=== PATIENT | female | born 1995 | race Caucasian/White ===

== ENCOUNTER → 2017-08-10 16:11 | Outpatient (CLI) | payer OTHER, SELFPAY ==
[2017-08-10 18:04] LABS: ALB/GLOB Ratio 1.2 RATIO (0.9-2.4); AST(SGOT) 11 U/L (15-37); Alanine Aminotransfer ALT/SGPT 21 U/L (13-56); Albumin, Serum 4.2 g/dL (3.2-5.0); Alkaline Phosphatase 65 U/L (45-117); Anion Gap 6 (5-15); BUN 12 mg/dL (7-18); BUN/Creat Ratio 15.4 RATIO (10-20); Calcium,Total 9.3 mg/dL (8.5-10.1); Chloride 106 mmol/L (98-107); Creatinine, Serum 0.78 mg/dL (0.55-1.02); EST Glomerular Filtration Rate 99 mL/min (>60); Est Glom Filt Rate - Afr Amer 120 mL/min (>60); Globulin 3.5 g/dL (2.2-4.2); Glucose 74 mg/dL (74-106); Protein, Total 7.7 g/dL (6.4-8.2); Sodium Level 141 mmol/L (136-145); T4 Free Direct 0.94 ng/dL (0.76-1.46); Thyroid Stim Hormone (TSH) 2.16 uIU/mL (0.358-3.74)
== END ==
DX: E03.9 Hypothyroidism, unspecified (principal); F41.9 Anxiety disorder, unspecified
CPT/HCPCS: 36415; 80053; 84439; 84443

== ENCOUNTER → 2018-09-13 08:22 | Outpatient (CLI) | payer OTHER, SELFPAY ==
[2018-09-13 10:19] LABS: Absolute Lymphocyte Count 2.18 X10^3/ul (0.83-4.51); Absolute Neutrophil Count 5.3 X10^3/uL (2.0-7.7); Basophil# 0.04 X10^3/uL; Basophil% 0.5 % (0-1); Eosinophil# 0.08 X10^3/uL; Hematocrit 40.8 % (37-47); Lymphocyte # 2.18 X10^3/ul (4.0); Lymphocyte % 27.5 % (19-41); Mean Corp Hgb Conc 31.9 g/gl (32-36); Mean Corpuscular Hgb 26.9 pg (27.0-32.0); Mean Corpuscular Volume 84.5 fL (81-99); Mean Platelet Vol. 10.8 fl (6.2-12.0); Monocyte# 0.36 X10^3/uL; Monocyte% 4.5 % (0-10); Neutrophil # 5.27 X10^3/uL (2.7-7.7); Neutrophil % 66.4 % (47-70); Platelet Count 301 K/mm3 (150-450); RBC Distribution Width CV 13.3 % (11.6-14.6); RBC Distribution Width SD 40.5 fl (35.1-43.9); Red Blood Count 4.83 M/mm3 (4.2-5.4); White Blood Count 7.9 K/mm3 (4.4-11.0)
[2018-09-13 10:22] LABS: POSITIVE COUNT NO; POSITIVE DIFFERENTIAL NO; POSITIVE MORPHOLOGY NO
[2018-09-13 11:03] LABS: ALB/GLOB Ratio 1.2 RATIO (0.9-2.4); AST(SGOT) 15 U/L (15-37); Alanine Aminotransfer ALT/SGPT 23 U/L (13-56); Albumin, Serum 4.1 g/dL (3.2-5.0); Alkaline Phosphatase 58 U/L (45-117); Anion Gap 6 (5-15); BUN 14 mg/dL (7-18); Calcium,Total 8.9 mg/dL (8.5-10.1); Chloride 109 mmol/L (98-107); Creatinine, Serum 0.88 mg/dL (0.55-1.02); EST Glomerular Filtration Rate 86 mL/min (>60); Est Glom Filt Rate - Afr Amer 104 mL/min (>60); Globulin 3.3 g/dL (2.2-4.2); Glucose 111 mg/dL (74-106); Potassium 3.8 mmol/L (3.5-5.1); Protein, Total 7.4 g/dL (6.4-8.2); Sodium Level 140 mmol/L (136-145); T4 Free Direct 0.97 ng/dL (0.76-1.46)
== END ==
DX: R00.2 Palpitations (principal)
CPT/HCPCS: 36415; 80053; 84439; 84443; 85025

== ENCOUNTER 2019-03-28 08:23 | Day surgery (SDC) | payer OTHER, SELFPAY ==
[2019-03-06 15:12] VITALS: BMI 34.7
--- NOTE | 2019-03-21 04:49 | HP.PCM_ITS ---
- Problem List (1) Adnexal mass Status: Acute Comment: suspect teratoma recommend Laparoscopic right ovarian cystectomy possible oophorectomy. (2) Anxiety Status: Acute (3) Hypothyroidism Status: Acute History and Physical Date of Admission: 03/28/19 ntake Visit Reasons: MASS ON UTERUS Hack Driver Required: No Is patient in pain?: Yes Pain scale (1-10): 2 Allergies azithromycin [From Zithromax Z-Sebastian] Allergy (Mild, Verified 03/06/19 15:08) hives Medications NK 03/06/19 [History Confirmed 03/06/19] Is last menstrual period known: Yes Last Menstral Period: 02/10/19 Post menopausal: No Patient : No : No COUNT INCLUDES [facility] Medical History (Updated 03/08/19 @ 04:38 by Marina Colindres MD) Hypothyroidism (Acute) Anxiety (Acute) Depression (Acute) Surgical History (Updated 03/06/19 @ 15:10 by Lakshmi Shepherd) S/P tonsillectomy (Resolved) Family History (Updated 03/06/19 @ 15:10 by Lakshmi Shepherd) Father Hypertension Mother Hypothyroidism Social History (Updated 03/08/19 @ 04:39 by Marina Colindres MD) Smoking Status: Never smoker alcohol intake: current details: occasionally substance use type: does not use caffeine: Yes what type of physical activity do you participate in: none seatbelt use: always do you feel safe at home: Yes additional social history: Single-Goes to school at [employer] Patient works at [employer] MASS ON UTERUS : Details: KATE TY is a 23 year old who presents for Follow-up after evaluation showed 16 cm follow-up after evaluation showed a 16 cm ovarian mass. Will obtain records. Based on description it sounds like a possible teratoma. She started having dyspareunia and some intermittent lower pelvic pain. She is not on any control at this time. She has regular menses and denies any abnormal bleeding. Female Reproductive History Last Menstral Period: 02/10/19 Cycle Length: 21-35 Bleeding Duration: 5 Questions: Metorrhagia: No, Sexually active: Yes, Dyspareunia: Yes, PCB: No Menopausal Symptoms: No night sweats Pregancy History 0 Elective abortions Hx Para Spontaneous abortions Hx # Term Pregnancies Ectopic pregnancies Hx # Pregnancies Multiple births # of living children ROS Const Constitutional: Denies fatigue, night sweats, weight gain or weight loss ENT ENT: Reports system reviewed and no additional complaints, except as docu Cardio Card: Denies chest pain Resp Resp: Denies cough or dyspnea GI GI: Reports as per HPI; denies abdominal pain, constipation, nausea or vomiting : Denies nipple discharge, urinary frequency, urinary incontinence, urinary hesitancy, urinary urgency, vaginal discharge, vaginal dryness, vaginal odor or vaginal itching Musc Musc: Denies joint pain, back pain or muscle weakness Skin Skin/Breast: Denies hair loss, change in hair, dry skin, breast lump, breast pain, breast skin changes or nipple discharge Neuro Neuro: Reports system reviewed and no additional complaints, except as docu Psych Psych: Reports system reviewed and no additional complaints, except as docu Endo Endo: Denies cold intolerance, excessive sweating, heat intolerance or increased thirst Armando/Lymph Hematologic/Lymphatic: Denies easy bleeding, Denies easy bruising, Denies enlarged lymph nodes Exam Const General: cooperative, healthy appearing, comfortable, no acute distress, well developed Orientation: alert [facility] Head: normal to inspection, normocephalic Ears: hearing grossly normal bilaterally, external ears normal Nose: external nose normal, nares normal Face and sinus: normal facial exam Neck Neck: normal visual inspection, no lymphadenopathy Thyroid: thyroid normal Chest Chest palpation & inspection: normal inspection of the chest Resp Effort & Inspection: normal respiratory effort Cardio Rate: regular rate Rhythm: regular rhythm GI Inspection: normal to inspection, non-distended Palpation: soft, no hepatosplenomegaly, mass (lower pelvic mass at pelvic brim, bedside US shows heterogenous cystic mass) Musc Other: gross motor intact no deficits, full bilateral strength Skin General: no rashes or lesions noted Neuro General: alert, awake, moves all extremities, no focal motor deficits Motor: muscle tone normal throughout Extrem General: normal to inspection, no pedal edema Psych Appearance: grossly normal Mental Status: mental status grossly normal Affect: normal affect Speech and Movement: speech and movement normal Assessment & Plan Problems 1. Adnexal mass N94.89 suspect teratoma recommend Laparoscopic right ovarian cystectomy possible oophorectomy. Plan After discussing the patient's diagnosis and treatment plan options, patient wishes to proceed with surgical management. I have discussed with the patient the risks, benefits, and alternatives of the procedure which include but are not limited to risks of anesthesia, bleeding, infection, possible damage to bowel, bladder, or surrounding vasculature which could lead to additional surgery to evaluate any complications. Patient agrees to procedure and wishes to proceed. i also discussed possible control implants like an IUD or nexplanon to be inserted at the time of the procedure if desired. patient to decide. Coding Level of Care Code Off vis,new,level 4 Diagnoses Adnexal mass N94.89
[2019-03-28 08:45] VITALS: BP 146/83; PULSE 98; RESP 14; TEMP 35.8; O2SAT 100; BMI 34.1
[2019-03-28 08:48] LABS: Internal QC Validated? YES +Cl - CLEAR BKGD; Pregnancy, Urine Negative Negative
[2019-03-28 09:01] LABS: Hematocrit 44.2 % (37-47); Hemoglobin 14.9 g/dL (12.0-15.0); Mean Corp Hgb Conc 33.7 g/dL (32-36); Mean Corpuscular Hgb 29.2 pg (27.0-32.0); Mean Corpuscular Volume 86.5 fL (81-99); Mean Platelet Vol. 9.9 fl (6.2-12.0); Platelet Count 273 K/mm3 (150-450); RBC Distribution Width CV 12.1 % (11.6-14.6); RBC Distribution Width SD 38.2 fl (35.1-43.9); Red Blood Count 5.11 M/mm3 (4.2-5.4); White Blood Count 10.2 K/mm3 (4.4-11.0)
[2019-03-28] MEDS: Lactated Ringers 1,000 ML 100 ML IV (09:11)
[2019-03-28 09:20] LABS: Thyroid Stim Hormone (TSH) 6.67 uIU/mL (0.358-3.74)
--- NOTE | 2019-03-28 10:00 | CYST_PTH ---
PATIENT: KATE TY [place] [facility] [id number] AGE/SX: 23/F ROOM: RE03/28/[address]: Dr. Marina Colindres MD : 1995 BED: DIS: 03/28/2019 SPEC #: [id number] RECD: 03/28/19 13:17 STATUS: REYNA VICENTE #: [id number] YOLA: 03/28/19 10:[address]: Marina Colindres DEPT: SURGICAL PATHOLOGY RECD BY: Jose Roberto Zhong Tissues: OVARIAN CYST Procedures: Surgery Specimen Level V HEADER OPERATION: Laparoscopic right ovarian cystectomy and right salpingectomy PRE-OP DIAGNOSIS: Right ovarian mass TISSUE SUBMITTED: Right ovarian cyst and right fallopian tube MICROSCOPIC DIAGNOSIS Right ovarian cyst and right fallopian tube, right ovarian cystectomy and right salpingectomy: Papillary serous cystadenofibroma with focal calcifications. Fallopian tube, no pathologic diagnosis. Focal tubo-ovarian adhesions. SJ:sola 03/29/19 COMMENT Case has been reviewed in consultation with Dr. Friend who concurs with the above diagnosis. IDC:AM MICROSCOPIC DESCRIPTION Slides are reviewed. GROSS DESCRIPTION Received in fixative is one container labeled with the patient's name and designated right ovarian cyst and right fallopian tube. The specimen consists of previously, partially opened, collapsed ovarian cyst, cystic ovary and stretched fallopian tube overlying the cyst. The focal area of the fallopian tube is adherent to the ovarian cyst. The entire specimen weighs 72 gm. The fallopian tube measures 8 cm in length and up to 1 cm in diameter. The cystic ovary measures 9 x 7 x 4 cm. The outer surface is inked black. No papillations are identified. The inner cyst wall shows multiple areas of small papillation. The largest area measures 4 cm in greatest dimension. The cyst wall measures 0.2 cm in thickness. Lead Radiologic Technologist sections are submitted in eight cassettes as follows: 1 - fallopian tube, 2-8 - cystic ovary. Almost the entire area of papillation is submitted. / CHADWICK:sola 03/28/19 TC:1 CPT: 75561
[2019-03-28] MEDS: Bupivacaine 0.25% 30 ML Vial (12:33)
--- NOTE | 2019-03-28 12:37 | PCM.OPRPT ---
Problem List (1) Adnexal mass Status: Acute Comment: suspect teratoma recommend Laparoscopic right ovarian cystectomy possible oophorectomy. (2) Anxiety Status: Acute (3) Hypothyroidism Status: Acute Report of Operation Date of Procedure: 03/28/19 Pre-Operative Diagnosis: right ovarian cyst, contraception, pelvic pain Post-Operative Diagnosis: same Surgery/Procedure Performed:: right ovarian cystectomy right salpingectomy mirena iud insertion Description of Surgical Findings:: enlarged right ovarian cyst left multicystic ovary photo mask inspector: Odalys Pierre Type of Anesthesia:: General Special Medications: surgicell Specimen's removed: right ovary and tube Drains: none Estimated Blood Loss (mL): 50 Fluids Replaced: crystalloid Description of Procedure: Presented to the operating room and was placed under general anesthesia was prepped and draped in normal sterile fashion in dorsal position. Bladder was drained clear urine and uterine manipulator was placed sounded to 10 cm. Was noted to be significantly distorted and anteverted insert patient was taken in the operating room and was placed under general anesthesia was prepped and draped in normal sterile fashion in the dorsal lithotomy position. Attention was then paid to the abdominal portion of the procedure and the umbilicus was elevated with towel clamps and injected with Marcaine and after a 12 mm incision was made and the Veress needle was entered into the abdomen confirmed to be intra-abdominal with a low opening pressure of less than 5 mmHg. Abdomen was insufflated with CO2 gas and a 12 mm optical trocar was placed under direct visualization. A right and left lower quadrant 5 mm ports were placed under direct visualization. Uterus was well visualized and noted to be significantly anteverted up into the left and the right ovary was noted to be significantly enlarged filling the entire cul-de-sac and extending up into the mid abdomen. Left ovary was noted to be multicystic in appearance but appear to be normal cyst. The right ovary was mobilized out of the cul-de-sac and the fallopian tube was noted to be significantly stretched out and the fimbria clogged and abnormal therefore after starting a dissection of the cyst to the decision to remove the fallopian tube and the entire ovarian tissue which was separate from some normal-appearing ovarian tissue. An additional left upper quadrant 5 mill meter port was placed for assistance. The base of the connection between the ovarian cyst and ovary were transected with the LigaSure device and the fallopian tube and mesosalpinx was transected with the LigaSure device and the ovarian cyst was placed into a bag without rupturing it and through the umbilical port site that was enlarged it was drained and removed of serous fluid in the rest the tissue was removed with no intra-abdominal spillage of contents. Fascia closed with 0 Vicryl suture. Pelvis was checked and Surgicel was placed over the left ovary that had been opened up to confirm physiologic cysts. Left fallopian tube was noted being within normal limits and the remaining right ovary was noted to be within normal limits. excellent hemostasis was noted. Liver and upper abdomen were visualized notably within normal limits and no other gross abnormalities were seen in the abdomen. All instruments removed from the abdomen after gas was desufflated. Port sites were closed with 3-0 Monocryl Steri's and op sites were applied. All instruments removed from the vagina and patient was awoken and taken recovery in stable condition. Uterine manipulator was removed and the anterior lip of the cervix was grasped with single-tooth tenaculum and uterus sounded to 10 cm the IUD was deployed without difficulty and strings x3 cm from the office. All instruments removed from the vagina. Grafts/Implants Used: mirena iud - Complications none Multi Select Codes - Urinary/Genital Urinary/Genital CPT Codes: 42490 Insert IUD, 17108 Laproscopic BS/O
[2019-03-28 12:55] VITALS: BP 137/84; BP 146/83; PULSE 76; RESP 16; TEMP 36.6; O2SAT 95
[2019-03-28 13:00] VITALS: BP 125/72; BP 146/83; PULSE 70; RESP 16; O2SAT 94
--- NOTE | 2019-03-28 13:08 | DCINST_ITS ---
Discharge Diet: No Restrictions - Increase fluid intake for the next 48 hours. Discharge Activity: Return to Normal Activity, May Drive - when you are no longer taking narcotic pain medications., May Shower, May Take a Tub Bath - in 7 days Additional Activity Instructions:: Ambulate often the next week after surgery. Nothing in the vagina for 5 days. Call your doctor if your incision/area has: Continuous Slow Oozing, Sudden Increased Bleeding, Increased Pain/ Swelling, Increased Redness, Foul Smelling Discharge Call your doctor if you observe: Fever of 101 or Higher Allergies/Adverse Reactions: Allergies azithromycin [From Zithromax Z-Sebastian] Allergy (Mild, Verified 03/21/19 14:44) hives Medications to take at Discharge Naproxen [Naprosyn] 250 - 500 mg PO Q8H PRN PRN #30 tab 03/28/19 Oxycodone HCl/Acetaminophen [Percocet 5-325] 1 - 2 tab PO Q4H PRN PRN 7 Days #15 tab 03/28/19 The following prescriptions were given: Naproxen [Naprosyn] 250 - 500 mg PO Q8H PRN PRN #30 tab PRN Reason: MILD PAIN Transmission Status: Received by [facility] Oxycodone HCl/Acetaminophen [Percocet 5-325] 1 - 2 tab PO Q4H PRN PRN 7 Days #15 tab PRN Reason: Pain Transmission Status: Received by [facility] Primary Care Physician: DEGAR JONES [Other] Test Results: Test results from this visit will be discussed in further detail at your follow- up appointment, if applicable. Please Follow Up With: Marina Colindres MD - [phone]
[2019-03-28 13:15] VITALS: BP 144/82; BP 146/83; PULSE 92; RESP 16; O2SAT 100
[2019-03-28 13:31] VITALS: BP 125/77; BP 146/83; PULSE 72; RESP 16; TEMP 36.3; O2SAT 100
[2019-03-28] MEDS: HYDROcodone Bitartrate/Apap 5/325 Tablet PO (14:00)
[2019-03-28 14:18] VITALS: BP 128/76; BP 146/83; PULSE 88; RESP 16; TEMP 36.1; O2SAT 98
== END 2019-03-28 14:25 | disposition home or self-care (01) ==
LOC: SDC 08:23 → AC 08:25
PROVIDERS: Anesthesiology; Referring Provider Obstetrics & Gynecology; Visit Provider Obstetrics & Gynecology
PROC: (CPT 58720; principal; 2019-03-28 09:45)
DX: D27.0 Benign neoplasm of right ovary (principal); E03.9 Hypothyroidism, unspecified; Z88.1 Allergy status to other antibiotic agents; Z86.2 Personal history of diseases of the blood and blood-forming organs and certain disorders involving the immune mechanism; Z79.899 Other long term (current) drug therapy
CPT/HCPCS: 58300; 58661; 58662; 81025; 84443; 85027; 86850; 86900; 86901; 88305; 88307; J7120; J2405

== ENCOUNTER 2019-04-02 10:37 | Observation (INO) | payer OTHER, SELFPAY ==
[2019-03-29 14:55] VITALS: BMI 34.1
[2019-04-02] VITALS (12 sets, daily range): BP systolic 107–163; BP diastolic 48–115; PULSE 70–121; RESP 12–24; TEMP 36.9–37.4; O2SAT 95–100; BMI 34.7; BMI 97.4
--- NOTE | 2019-04-02 | FLU_PTH ---
PATIENT: KATE TY LOC: [facility] U#:[id number] AGE/SX: 23/ ROOM: [facility] RE04/02/[address]: Dr. Marina Colindres MD : 1995 BED: 1 DIS: 04/03/2019 SPEC #: [id number] RECD: 04/02/19 13:45 STATUS: REYNA RENallely #: [id number] YOLA: 04/02/19 00:[address]: Marina Colindres DEPT: CYTOLOGY RECD BY: Yaritza Mcgregor ENTERED: 04/03/19 09:05 SP TYPE: Fluid OTHR DR: Dr. Jerry Woo, DO Tissues: Pelvis, NOS Procedures: Special Stain Group II Surgery Specimen Level IV Cytospin Fluid HEADER OPERATION: Not noted PRE-OP DIAGNOSIS: Pelvic abscess TISSUE SUBMITTED: Pelvic seroma fluid for cytology DIAGNOSIS CYTOLOGY Pelvic seroma fluid for cytology (cytospin and cell block): Marked acute inflammation. Negative for malignant cells. AM:sola 04/04/19 COMMENT Clinical correlation is necessary. Case has been reviewed in consultation with Dr. Cr who concurs with the above diagnosis. IDC:SJ CYTOLOGY STUDY Slides are reviewed. CYTOLOGY GROSS Received is 12 ml of red hazy fluid labeled with the patient's name and and designated per the requisition as pelvic seroma. Submitted for cytology preparation including cell block. /CC:cc 04/03/19 TC:2 CPT: 57463, 14923
[2019-04-02 11:16] LABS: Absolute Lymphocyte Count 1.81 X10^3/uL (0.83-4.51); Absolute Neutrophil Count 10.5 X10^3/uL (2.0-7.7); Basophil# 0.04 X10^3/uL; Basophil% 0.3 % (0-1); Eosinophil# 0.12 X10^3/uL; Eosinophils% 0.9 % (0-5); Hematocrit 36.6 % (37-47); Hemoglobin 11.9 g/dL (12.0-15.0); Lymphocyte # 1.81 X10^3/ul (4.0); Lymphocyte % 13.5 % (19-41); Mean Corp Hgb Conc 32.5 g/dL (32-36); Mean Corpuscular Hgb 28.6 pg (27.0-32.0); Mean Platelet Vol. 10.1 fl (6.2-12.0); Monocyte# 0.85 X10^3/uL; Monocyte% 6.3 % (0-10); NRBC Flagged by Analyzer 0 % (0-5); Neutrophil # 10.52 X10^3/uL (2.7-7.7); Neutrophil % 78.6 % (47-70); Platelet Count 214 K/mm3 (150-450); RBC Distribution Width CV 12.2 % (11.6-14.6); RBC Distribution Width SD 39.1 fl (35.1-43.9); Red Blood Count 4.16 M/mm3 (4.2-5.4); White Blood Count 13.4 K/mm3 (4.4-11.0)
[2019-04-02] MEDS: HYDROmorphone 0.5 MG/0.5 ML SYRINGE IV ×2 (11:16→15:37)
[2019-04-02 11:28] LABS: Anion Gap 3 (5-15); BUN 9 mg/dL (7-18); BUN/Creat Ratio 12.3 RATIO (10-20); Calcium,Total 8.1 mg/dL (8.5-10.1); Chloride 112 mmol/L (98-107); Creatinine, Serum 0.73 mg/dL (0.55-1.02); EST Glomerular Filtration Rate 105 mL/min (>60); Est Glom Filt Rate - Afr Amer 127 mL/min (>60); Estimated Creatinine Clearance 113.16 ml/min; Glucose 87 mg/dL (74-106); Magnesium 2.3 mg/dL (1.6-2.6); Potassium 3.9 mmol/L (3.5-5.1); Sodium Level 142 mmol/L (136-145)
--- NOTE | 2019-04-02 11:45 | PCM.PN.BLA ---
Progress Note i talked wih Dr. Sarmiento regarding Lauryn Huynh. This young patient had a recent partial right oophorectomy on 2018 and has since developed a large, 10 x 12 cm centrally located cystic lesion in the pelvis on a recent CT scan of 04-02-2019. This cystic lesion is of uncertian etiology. It could represent a seroma, cystic fluid from the patients recently resected cystadenofibroma or an abscess. After consultation with Dr. Sarmiento, it was decided to put a needle into this fluid collection with CT guidance and withdraw 5 cc of fluid. If the fluid is blood and or cystic fluid, this will be sent to the labrotory for Cand S and the needle withdrawn. If abscess, a cathetor will be placed and the abscess will be managed by Dr. Sarmiento. Dr. Jerry Woo
--- NOTE | 2019-04-02 12:02 | HP.PCM_ITS ---
Problem List (1) Right pelvic adnexal fluid collection Status: Acute Comment: 15 x 8 x 5 cm complex fluid colleciton right pelvis, consult CT for drainage and evaluation (2) Adnexal mass Status: Acute Comment: serous cystadenofibroma, s/p Laparoscopic right ovarian partial oophorectomy 03/28/19. (3) Hypothyroidism Status: Chronic (4) Anxiety Status: Acute History of Present Illness Date of Admission: 04/02/19 Chief Complaint: pelvic fluid postop The patient is a 23 year old F presented to the emergency room with increasing lower pelvic and abdominal pain. She has had some nausea but no significant vomiting. Patient complains of decreased appetite and limited flatus. She is passing stool and having pain with urination. She feels bloated and had a low- grade temp of 99 yesterday but is afebrile today 98. She was seen in the [place] ER and evaluated and on CT imaging was found to have a right 12 x 5 x 8 cm complex fluid collection in the right adnexal area. She is postop day 5 from a laparoscopic partial right ovarian removal for a serous cystadenofibroma and left ovarian cyst drainage. This was performed as an outpatient and was uncomplicated at the time of procedure. White count was elevated at 17 and patient was transported to [facility] for evaluation. Past Medical History Past Medical History (Chronic Problems): Chronic Problems (Last Reviewed 03/29/19 @ 14:59 by Vijaya Fam) Hypothyroidism (Chronic) Medical History: Medical History (Last Reviewed 03/29/19 @ 14:59 by Vijaya Fam) Hypothyroidism (Chronic) E03.9 Anxiety (Acute) F41.9 Depression F32.9 Allergies azithromycin [From Zithromax Z-Sebastian] Allergy (Mild, Verified 04/02/19 08:57) hives Home Medications: Ambulatory Orders Medication Instructions Recorded Naproxen [Naprosyn] 250 - 500 mg PO Q8H PRN PRN #30 tab 03/28/19 Oxycodone HCl/Acetaminophen 1 - 2 tab PO Q4H PRN PRN 7 Days 03/28/19 [Percocet 5-325] #15 tab levothyroxine 25 mcg tablet 25 mcg PO DAILY #30 tab 03/29/19 Surgical History: Surgical History (Last Reviewed 03/29/19 @ 14:59 by Vijaya Fam) History of removal of ovarian cyst Z98.890, Z87.42 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 Denies: Fever Eyes: Denies: Blurred vision, Vision Change HEENT: Denies: Head Aches, Visual Changes Cardiovascular: Denies: Chest Pain, Palpitations Respiratory: Denies: Cough, Shortness of Breath, Wheezing Gastrointestinal: Reports: Abdominal Pain, Diarrhea, Nausea, Vomiting Genitourinary: Reports: Dysuria. Denies: Hematuria Gynecological: Reports: Vaginal bleeding - Small amount Musculoskeletal: Denies: Joint Pain, Muscle pain Skin: Denies: Lesions, Rash Neurological: Denies: Blurred vision, Focal weakness, Headaches Psychiatric: Denies: Anxiety, Depression Endocrine: Denies: Heat/ Cold Intolerance Hematologic/ Lymphatic: Denies: Easy Bruising, Easy Bleeding VTE Information - Inpt Only VTE Present on Admission: No VTE Mechan Device Prophylaxis: SCD's Patient Problems: Active and Suspected Problems (Last Reviewed 03/29/19 @ 14:59 by Vijaya Fam) Right pelvic adnexal fluid collection (Acute) 15 x 8 x 5 cm complex fluid colleciton right pelvis, consult CT for drainage and evaluation - Physical Exam General: Alert, Oriented x3, Cooperative HEENT: Atraumatic, PERRLA, Normocephalic Neck: Supple, Trachea Midline, Thyroid Normal Size and Texture Lungs: Clear to auscultation, Normal air movement Cardiovascular: Regular rate, No murmurs Abdomen: Hypoactive Bowel Sounds, Distended, Rebound Tenderness, Tender Extremities: No edema, Capillary Refill Less than 3 Seconds Skin: No rashes, No breakdown Musculoskeletal: No Tenderness to Palpation of Joints or Extremities Neurological: Cranial nerves II-XII grossly intact Psych/Mental Status: Normal Affect, Appropriate Vital Signs Temp Pulse Resp BP Pulse Ox 98.5 F 96 16 120/58 L 99 04/02/19 09:02 04/02/19 09:10 04/02/19 09:02 04/02/19 09:02 04/02/19 09:02 Oxygen Delivery Method Room Air Weight: 214 lb 12.8 oz Body Mass Index (BMI) 34.7 Laboratory Tests Past 24 Hrs 04/02/19 04/02/19 11:10 11:10 WBC 13.4 H RBC 4.16 L Hgb 11.9 L Hct 36.6 L MCV 88.0 MCH 28.6 MCHC 32.5 RDW Std Deviation 39.1 RDW Coeff of Nidia 12.2 Plt Count 214 MPV 10.1 Immature Gran % (Auto) 0.400 Neut % (Auto) 78.6 H Lymph % (Auto) 13.5 L Bradford % (Auto) 6.3 Eos % (Auto) 0.9 Baso % (Auto) 0.3 Absolute Neuts (auto) 10.5 H Absolute Lymphs (auto) 1.81 Nucleated RBC % 0 Sodium 142 Potassium 3.9 Chloride 112 H Carbon Dioxide 27.0 Anion Gap 3 L BUN 9 Creatinine 0.73 Estim Creat Clear Calc 113.16 Est GFR (MDRD) Af Amer 127 Est GFR (MDRD) Non-Af 105 BUN/Creatinine Ratio 12.3 Glucose 87 Calcium 8.1 L Magnesium 2.3 Assessment/Plan All Active Problems (Last Reviewed 03/29/19 @ 14:59 by Vijaya Fam) Right pelvic adnexal fluid collection (Acute) Adnexal mass (Acute) Anxiety (Acute) 23-year-old postop day 5 from laparoscopic partial right ovarian removal for a serous cystadenofibroma with a right complex pelvic fluid collection 1. Pelvic fluid collection recommend evaluation by radiology for possible CT- guided drainage and evaluation. Discussed with patient observation versus CT drainage versus surgical drainage. Recommend proceeding with CT-guided drainage for right now. npo, discussed with radiologist Multi Select Codes - Visit Charges Observation E&M Codin Initial observation care L3
[2019-04-02 12:32] LABS: International Normalized Ratio 1.1; Prothrombin Time (Protime)PT. 14.3 SECONDS (11.7-14.9)
[2019-04-02 12:33] LABS: Partial Thromboplast Time 26.9 Seconds (24.1-36.2)
--- NOTE | 2019-04-02 12:40 | CT_ITS ---
PROCEDURE: Ultrasound Guided CLINICAL HISTORY: Female, 23 years old. Large fluid collection noted in the cul-de-sac. CONSENT: A Time-Out Called: Yes Consent form signed: YES PT-PTT Levels Checked: Yes SEDATION: Conscious sedation was performed with 2 mg of Versed and 50 mcg of fentanyl given IV TECHNIQUE: Comparison is made to the most recent CT scan of the abdomen and pelvis obtained on 04/02/2019. The procedure was explained to the patient and her mother including the possible complications of systemic infection and intraperitoneal perforation and spread. The patient and her mother understand the complications. FINDINGS: The patient was placed in a prone position. A grid was utilized to to federica the appropriate position for needle entry. After this the site was marked and the skin was sterilely prepped and usual fashion. CT measurements and angulation was utilized to advance a 20-gauge needle approximately 9 cm down to a position approximately 1 cm posterior to the large fluid collection. Lidocaine plus sodium bicarbonate was injected through the needle tip. After the appropriate position of the needle tip was determined the needle was advanced 3 cm with its tip within the fluid collection. 10 to 12 cc of bloody fluid was aspirated from the fluid collection. This fluid was sent to the laboratory for culture and sensitivity creatinine and additional test under the direction of Dr. Marina Neely. Because the fluid collection was bloody, it was felt that this represented a seroma. This seroma was not completely aspirated as the large fluid collection within the seroma was felt to have a tampon on mean artifact and could prevent further bleeding. The needle was then withdrawn and the patient was sent back to her room in good condition. I discussed this case with Dr. Marina Sarmiento at 2:00 PM today and told her that I suspect this represented a large seroma. Should the laboratory evaluation prove that this is a seroma, Dr. Federica Neely will repeat the CT scan of the abdomen and pelvis in a week to check for resolution of the seroma. CT/Abscess/Fistula/Sinus Tract IMPRESSION: A diagnostic aspiration of a large fluid collection in the cul-de-sac was performed as described above. 10 to 12 cc of bloody fluid, indicative of a seroma, was obtained and sent to laboratory for further analysis as described above. Electronically Signed: Jerry Woo, at 15:32 EDT Tel , Service support ,
[2019-04-02] MEDS: Midazolam 2 MG/2 ML Syringe IV (13:13)
[2019-04-02] MEDS: fentaNYL 100 MCG/2 ML Ampul IV ×2 (13:15→13:35)
[2019-04-02 13:51] LABS: Cytology, Body Fluid / CSF SEE PATHOLOGY REPORT
[2019-04-02] MEDS: Sodium Bicarbonate 50 MEQ/50 ML Vial IRRIGATION (14:05)
--- NOTE | 2019-04-02 14:25 | NURSING ---
Bandaid to rt buttock is dry and intact.
--- NOTE | 2019-04-02 17:26 | PCA ---
pt off floor
[2019-04-02] MEDS: oxyCODONE 5 MG Tablet PO ×2 (17:31→21:59)
[2019-04-02] MEDS: Ketorolac 30 MG/ML Syringe IV (17:38)
[2019-04-02] MEDS: 0.9% NaCl Peripheral Flush Adult/Peds IV ×2 (17:39→17:43)
[2019-04-02] MEDS: metroNIDAZOLE 500 MG/100 ML BAG 100 MG IV (18:51)
[2019-04-02] MEDS: Zolpidem Tartrate 5 MG Tablet PO (22:47)
[2019-04-03] MEDS: Ketorolac 30 MG/ML Syringe IV ×3 (01:19→11:56)
[2019-04-03 02:00] VITALS: BP 115/54; PULSE 86; RESP 18; TEMP 37.1; O2SAT 94
[2019-04-03] MEDS: oxyCODONE 5 MG Tablet PO (02:24)
[2019-04-03 06:06] LABS: Absolute Lymphocyte Count 2.49 X10^3/uL (0.83-4.51); Absolute Neutrophil Count 7.4 X10^3/uL (2.0-7.7); Basophil# 0.03 X10^3/uL; Basophil% 0.3 % (0-1); Eosinophil# 0.15 X10^3/uL; Eosinophils% 1.4 % (0-5); Hemoglobin 10.9 g/dL (12.0-15.0); Lymphocyte # 2.49 X10^3/ul (4.0); Lymphocyte % 22.7 % (19-41); Mean Corp Hgb Conc 32.1 g/dL (32-36); Mean Corpuscular Hgb 28.7 pg (27.0-32.0); Mean Corpuscular Volume 89.5 fL (81-99); Mean Platelet Vol. 10.3 fl (6.2-12.0); Monocyte# 0.84 X10^3/uL; Monocyte% 7.7 % (0-10); NRBC Flagged by Analyzer 0 % (0-5); Neutrophil # 7.42 X10^3/uL (2.7-7.7); Neutrophil % 67.4 % (47-70); Platelet Count 198 K/mm3 (150-450); RBC Distribution Width CV 12.3 % (11.6-14.6); RBC Distribution Width SD 40.2 fl (35.1-43.9)
[2019-04-03 06:20] LABS: Anion Gap 6 (5-15); BUN 10 mg/dL (7-18); BUN/Creat Ratio 13.9 RATIO (10-20); Calcium,Total 7.9 mg/dL (8.5-10.1); Chloride 110 mmol/L (98-107); Creatinine, Serum 0.72 mg/dL (0.55-1.02); EST Glomerular Filtration Rate 107 mL/min (>60); Est Glom Filt Rate - Afr Amer 129 mL/min (>60); Estimated Creatinine Clearance 114.73 ml/min; Glucose 117 mg/dL (74-106); Sodium Level 142 mmol/L (136-145)
--- NOTE | 2019-04-03 08:04 | PCM.PN.OB ---
Patient Problems: Active and Suspected Problems (Last Reviewed 03/29/19 @ 14:59 by Vijaya Fam) Right pelvic adnexal fluid collection (Acute) 15 x 8 x 5 cm complex fluid colleciton right pelvis, consult CT for drainage and evaluation Subjective: Ambulating and voiding without difficulty. States pain is controlled. Denies CP, SOB. Denies nausea. Tolerating PO fluids. - Physical Exam General: Alert, Oriented x3 Abdomen: Soft, Non-Distended - Incision healing, nonerythematous., Passing Flatus, - - Incision healing, nonerythematous. Some tenderness with exam/guarding. Vital Signs Temp Pulse Resp BP Pulse Ox 98.7 F 86 18 115/54 L 94 04/03/19 02:00 04/03/19 02:00 04/03/19 02:00 04/03/19 02:00 04/03/19 02:00 Oxygen Delivery Method [5] Room Air Oxygen Delivery Method [4] Room Air Oxygen Delivery Method [3] Room Air Oxygen Delivery Method [2] Room Air Oxygen Delivery Method [1 ( Room Air Initial Baseline)] Oxygen Delivery Method Room Air Weight: 214 lb 12.8 oz Body Mass Index (BMI) 34.7 Intake and Output for Last 24 Hours 04/01/19 04/02/19 04/03/19 23:59 23:59 23:59 Intake Total 1513.09 / 1513.09 50 / 50 Output Total 300 / 550 500 / 500 Balance 1213.09 / 963.09 -450 / -450 Microbiology Past 72 Hours 04/02/19 13:40 Gram Stain - Final Fluid - Seroma Laboratory Tests Past 24 Hrs 04/02/19 04/02/19 04/02/19 11:10 11:10 12:10 WBC 13.4 H RBC 4.16 L Hgb 11.9 L Hct 36.6 L MCV 88.0 MCH 28.6 MCHC 32.5 RDW Std Deviation 39.1 RDW Coeff of Nidia 12.2 Plt Count 214 MPV 10.1 Immature Gran % (Auto) 0.400 Neut % (Auto) 78.6 H Lymph % (Auto) 13.5 L [place] % (Auto) 6.3 Eos % (Auto) 0.9 Baso % (Auto) 0.3 Absolute Neuts (auto) 10.5 H Absolute Lymphs (auto) 1.81 Nucleated RBC % 0 PT 14.3 INR 1.1 APTT 26.9 Sodium 142 Potassium 3.9 Chloride 112 H Carbon Dioxide 27.0 Anion Gap 3 L BUN 9 Creatinine 0.73 Estim Creat Clear Calc 113.16 Est GFR (MDRD) Af Amer 127 Est GFR (MDRD) Non-Af 105 BUN/Creatinine Ratio 12.3 Glucose 87 Calcium 8.1 L Magnesium 2.3 Miscellaneous Cytology Miscellaneous Test 04/02/19 04/02/19 04/03/19 13:40 13:40 05:35 WBC 11.0 RBC 3.80 L Hgb 10.9 L Hct 34.0 L MCV 89.5 MCH 28.7 MCHC 32.1 RDW Std Deviation 40.2 RDW Coeff of Nidia 12.3 Plt Count 198 MPV 10.3 Immature Gran % (Auto) 0.500 Neut % (Auto) 67.4 Lymph % (Auto) 22.7 [place] % (Auto) 7.7 Eos % (Auto) 1.4 Baso % (Auto) 0.3 Absolute Neuts (auto) 7.4 Absolute Lymphs (auto) 2.49 Nucleated RBC % 0 PT INR APTT Sodium Potassium Chloride Carbon Dioxide Anion Gap BUN Creatinine Estim Creat Clear Calc Est GFR (MDRD) Af Amer Est GFR (MDRD) Non-Af BUN/Creatinine Ratio Glucose Calcium Magnesium Miscellaneous Cytology Pending Miscellaneous Test Pending 04/03/19 05:35 WBC RBC Hgb Hct MCV MCH MCHC RDW Std Deviation RDW Coeff of Nidia Plt Count MPV Immature Gran % (Auto) Neut % (Auto) Lymph % (Auto) [place] % (Auto) Eos % (Auto) Baso % (Auto) Absolute Neuts (auto) Absolute Lymphs (auto) Nucleated RBC % PT INR APTT Sodium 142 Potassium 4.0 Chloride 110 H Carbon Dioxide 26.0 Anion Gap 6 BUN 10 Creatinine 0.72 Estim Creat Clear Calc 114.73 Est GFR (MDRD) Af Amer 129 Est GFR (MDRD) Non-Af 107 BUN/Creatinine Ratio 13.9 Glucose 117 H Calcium 7.9 L Magnesium Miscellaneous Cytology Miscellaneous Test Medical Necessity - Tobacco Use Smoking Status: Never smoker Tobacco Use: Non-smoker Assessment/Plan All Active Problems (Last Reviewed 03/29/19 @ 14:59 by Vijaya Fam) Right pelvic adnexal fluid collection (Acute) Adnexal mass (Acute) Anxiety (Acute) Pelvic Abscess: afebrile Continue pain control, ambulate. Plan DC today if continues to improve
[2019-04-03 08:17] VITALS: BP 114/53; PULSE 74; RESP 16; TEMP 36.8; O2SAT 97
[2019-04-03 10:30] VITALS: O2SAT 96
[2019-04-03] MEDS: Acetaminophen 325 MG Tablet 650 MG PO (10:39)
[2019-04-03] MEDS: metroNIDAZOLE 500 MG/100 ML BAG 100 MG IV (10:40)
[2019-04-03] MEDS: 0.9% NaCl Peripheral Flush Adult/Peds IV (11:55)
--- NOTE | 2019-04-03 13:06 | PCM.DC.TUB ---
Discharge Diet: No Restrictions - Increase fluid intake for the next 48 hours. Discharge Activity: Return to Normal Activity, May Drive - when you are no longer taking narcotic pain medications., May Shower, May Take a Tub Bath - in 7 days Additional Activity Instructions:: Ambulate often the next week after surgery. Nothing in the vagina for 5 days. Call your doctor if your incision/area has: Continuous Slow Oozing, Sudden Increased Bleeding, Increased Pain/ Swelling, Increased Redness, Foul Smelling Discharge Call your doctor if you observe: Fever of 101 or Higher Allergies/Adverse Reactions: Allergies azithromycin [From Zithromax Z-Sebastian] Allergy (Mild, Verified 04/02/19 08:57) hives Medications to take at Discharge RX: Naproxen [Naprosyn] 250 - 500 mg PO Q8H PRN PRN #30 tab 03/28/19 RX: Oxycodone HCl/Acetaminophen [Percocet 5-325] 1 - 2 tab PO Q4H PRN PRN 7 Days #15 tab 03/28/19 levothyroxine 25 mcg tablet 25 mcg PO DAILY #30 tab 03/29/19 Amoxicillin/Potassium Clav [Augmentin 875-125 Tablet] 1 ea PO BID #20 tab 04/03/19 Metronidazole [Flagyl] 500 mg PO BID #20 tab 04/03/19 The following prescriptions were given: Amoxicillin/Potassium Clav [Augmentin 875-125 Tablet] 1 ea PO BID #20 tab Transmission Status: Pending to [facility] Metronidazole [Flagyl] 500 mg PO BID #20 tab Transmission Status: Pending to [facility] Test Results: Test results from this visit will be discussed in further detail at your follow-up appointment, if applicable. Please Follow Up With: Marina Colindres MD - [phone]
[2019-04-03 14:15] VITALS: BP 122/67; PULSE 82; RESP 18; TEMP 36.8; O2SAT 98
== END 2019-04-03 15:35 | disposition home or self-care (01) ==
PROVIDERS: Admitting Provider Obstetrics & Gynecology; Referring Provider Obstetrics & Gynecology; Visit Provider Obstetrics & Gynecology
DX: N73.0 Acute parametritis and pelvic cellulitis (principal); N94.89 Other specified conditions associated with female genital organs and menstrual cycle; Z79.899 Other long term (current) drug therapy; E03.9 Hypothyroidism, unspecified; F41.9 Anxiety disorder, unspecified; F32.9 Major depressive disorder, single episode, unspecified; Z98.890 Other specified postprocedural states
CPT/HCPCS: 49083; 20501; 36415; 77012; 80048; 83735; 85025; 85610; 85730; 87070; 87075; 87076; 87205; 88108; 88305; 88313; 96361; 96365; 96366; 96367; 96375; 96376; 99156; 99218; J7040; A4216; G0378; G0379

== ENCOUNTER → 2019-05-06 07:08 | Outpatient (CLI) | payer OTHER, SELFPAY ==
[2019-04-11 13:26] VITALS: BMI 34.7
--- NOTE | 2019-05-06 07:10 | CT_ITS ---
STUDY: CT ABDOMEN AND PELVIS WITH CONTRAST REASON FOR EXAM: Female, 23 years old. Right adnexal fluid collection following prior ovarian cyst removal. RADIATION DOSAGE (If Supplied By Facility): CTDIvol = ( 17.53 ) mGy, DLP = ( 1186.18 ) mGycm TECHNIQUE: Transaxial images were obtained from the dome of the diaphragm to the symphysis pubis without oral contrast. IV/Oral Isovue 300 100CC was administered. Sagittal and coronal images were reconstructed. Individualized dose optimization techniques were used for this CT. COMPARISON: None. FINDINGS: The visualized lung bases are unremarkable. The visualized portions of the heart are within normal limits. Normal liver. Normal gallbladder and extrahepatic biliary system. Normal spleen. Normal pancreas. Normal bilateral adrenal glands. Normal right kidney. Normal left kidney. Normal visualized stomach. Normal small intestine. Normal colon. The appendix is visualized and appears normal. Normal abdominal aorta. Normal inferior vena cava. There is borderline retroperitoneal lymphadenopathy with enlarged nodes no greater than 10mm in the short axis diameter. Normal urinary bladder. There is an 8.8 cm x 5.2 cm x 6.4 cm septated cyst in the left adnexa. IUD is seen within the endometrium. Small bilateral benign-appearing inguinal lymph nodes. Normal abdominal wall. Normal osseous structures. CT/Abdomen/Pelvis WITH Contrast IMPRESSION: Large septated cyst in the left adnexa as described. Electronically Signed: Spenser Godinez, at 10:45 EST , Service support ,
== END ==
PROVIDERS: Referring Provider Nurse Practitioner Women's Health; Visit Provider Nurse Practitioner Women's Health
DX: N83.8 Other noninflammatory disorders of ovary, fallopian tube and broad ligament (principal); R59.0 Localized enlarged lymph nodes; Z97.5 Presence of (intrauterine) contraceptive device
CPT/HCPCS: 74177; Q9967

== ENCOUNTER → 2019-06-27 13:28 | Outpatient (CLI) | payer OTHER, SELFPAY ==
[2019-04-11 13:26] VITALS: BMI 34.7
[2019-05-16 09:05] VITALS: BMI 34.7
--- NOTE | 2019-06-27 13:31 | US_ITS ---
STUDY: ULTRASOUND TRANSVAGINAL CLINICAL: Female, 24 years old. lt ovarian cyst -s/p rt oophorectomy TECHNIQUE: Transvaginal COMPARISON: None. FINDINGS: Normal uterine size measuring 10.2 x 6.1 x 4.7 cm in maximal craniocaudal dimension. There are no myometrial masses. An IUD is present appearing in adequate position. Normal endometrial thickness measuring 5 mm. There are no endometrial masses, and there is no fluid in the endometrial cavity. Normal uterine cervix. There is a complex cystic focus of the right adnexa measuring 5.1 x 3.8 x 4.9 cm. By history the patient is status post right oophorectomy. The left ovary measures overall 10.2 x 5.0 x 5.9 cm. There are 2 left ovarian cysts measuring 6.3 x 5.1 x 5.5 cm and 4.1 x 2.4 x 3.4 cm respectively. There is no free fluid in the pelvis. Polycystic ovary disease: No. US/Transvaginal Non- IMPRESSION: An IUD is present appearing in adequate position. Complex cystic focus of the right adnexa measuring 5.1 x 3.8 x 4.9 cm. It should be noted that by history the patient is status post right oophorectomy. There are 2 left ovarian cysts measuring 6.3 x 5.1 x 5.5 cm and 4.1 x 2.4 x 3.4 cm respectively. Electronically Signed: Hayden Ornelas MD at 22:18 EST , Service support ,
--- NOTE | 2019-06-27 13:31 | US_ITS ---
STUDY: ULTRASOUND TRANSVAGINAL CLINICAL: Female, 24 years old. lt ovarian cyst -s/p rt oophorectomy TECHNIQUE: Transvaginal COMPARISON: None. FINDINGS: Normal uterine size measuring 10.2 x 6.1 x 4.7 cm in maximal craniocaudal dimension. There are no myometrial masses. An IUD is present appearing in adequate position. Normal endometrial thickness measuring 5 mm. There are no endometrial masses, and there is no fluid in the endometrial cavity. Normal uterine cervix. There is a complex cystic focus of the right adnexa measuring 5.1 x 3.8 x 4.9 cm. By history the patient is status post right oophorectomy. The left ovary measures overall 10.2 x 5.0 x 5.9 cm. There are 2 left ovarian cysts measuring 6.3 x 5.1 x 5.5 cm and 4.1 x 2.4 x 3.4 cm respectively. There is no free fluid in the pelvis. Polycystic ovary disease: No. US/Pelvic (Non ) IMPRESSION: An IUD is present appearing in adequate position. Complex cystic focus of the right adnexa measuring 5.1 x 3.8 x 4.9 cm. It should be noted that by history the patient is status post right oophorectomy. There are 2 left ovarian cysts measuring 6.3 x 5.1 x 5.5 cm and 4.1 x 2.4 x 3.4 cm respectively. Electronically Signed: Hayden Ornelas MD at 22:18 EST , Service support ,
== END ==
PROVIDERS: Referring Provider Obstetrics & Gynecology; Visit Provider Obstetrics & Gynecology
DX: N83.202 Unspecified ovarian cyst, left side (principal)
CPT/HCPCS: 76830; 76856

== ENCOUNTER → 2019-07-09 14:41 | Outpatient (CLI) | payer OTHER, SELFPAY ==
[2019-05-16 09:05] VITALS: BMI 34.7
[2019-07-09 18:52] LABS: Thyroid Stim Hormone (TSH) 2.67 uIU/mL (0.358-3.74)
[2019-07-10 07:02] LABS: T4 Free Direct 1.04 ng/dL (0.76-1.46)
== END ==
PROVIDERS: Referring Provider Obstetrics & Gynecology; Visit Provider Obstetrics & Gynecology
DX: E03.9 Hypothyroidism, unspecified (principal)
CPT/HCPCS: 36415; 84439; 84443

== ENCOUNTER → 2019-09-11 12:14 | Outpatient (CLI) | payer OTHER, SELFPAY ==
[2019-05-16 09:05] VITALS: BMI 34.7
--- NOTE | 2019-09-11 12:17 | US_ITS ---
STUDY: ULTRASOUND OF THE FEMALE PELVIS - COMPLETE REASON FOR EXAM: Female, 24 years old. Pelvic pain -- per patient s/p partial RT oophorectomy LMP: TECHNIQUE: Transabdominal TECHNICAL QUALITY: Adequate. COMPARISON: Comparison is made with prior examination dated December 26, 2019. FINDINGS: The uterus is anteverted and is in a midline position. The uterus measures 9.5 cm x 4.8 signed by 4.0 cm. Normal uterine cervix. The endometrium measures 1.7 mm in thickness, and is hyperechoic. There is no demonstrated endometrial mass. There is no demonstrated myometrial mass. I.U.D. - The patient does have an I.U.D. The right ovary is visualized. The right ovary measures 7.4 cm x 7.4 cm x 5.9 cm. There is a 5.3 cm x 6.1 cm x 4.5 cm cyst in the right ovary. There is no visualized right adnexal mass or complex lesion. There is normal arterial and normal venous vascularity. The left ovary is visualized. The left ovary measures 4.1 cm x 3 cm x 2.3 cm. There is no left ovarian cyst or ovarian mass. There is no visualized left adnexal mass or complex lesion. There is normal arterial and normal venous vascularity. There is minimal fluid in the cul-de-sac. The pre void volume of the bladder was 471 ml. Polycystic ovary disease: No. US/Pelvic (Non ) IMPRESSION: 5.3 cm x 6.1 cm x 4.5 cm cyst in the right ovary. The previously seen left ovarian cysts have resolved. Electronically Signed: Spenser Godinez, at 13:57 EDT , Service support ,
== END ==
PROVIDERS: Referring Provider Obstetrics & Gynecology; Visit Provider Obstetrics & Gynecology
DX: R10.2 Pelvic and perineal pain (principal)
CPT/HCPCS: 76856; 93976

== ENCOUNTER → 2019-11-14 14:51 | Outpatient (CLI) | payer OTHER, SELFPAY ==
[2019-11-14 11:31] VITALS: BMI 33.3
[2019-11-14 17:58] LABS: Chlamydia Trachomatis by PCR Negative (Negative); Neisserai gonorrhoeae by PCR Negative (Negative); Probe Check PASS; Sample Adequacy Control PASS; Specimen Processing Control PASS
== END ==
PROVIDERS: Referring Provider Nurse Practitioner Women's Health; Visit Provider Nurse Practitioner Women's Health
DX: Z11.3 Encounter for screening for infections with a predominantly sexual mode of transmission (principal)
CPT/HCPCS: 87491; 87591

== ENCOUNTER → 2021-06-21 11:43 | Outpatient (CLI) | payer OTHER, SELFPAY ==
--- NOTE | 2021-06-21 12:03 | US_ITS ---
INDICATION: OVARIAN CYST -- LT SIDE EXAMINATION: Ultrasound US Transvaginal Non-OB TECHNIQUE: Transvaginal (for optimal evaluation of the adnexa) pelvic ultrasound was performed. Grayscale, spectral waveform, and color flow Doppler evaluation of the adnexa. COMPARISON: None. FINDINGS: UTERUS: The uterus measures 8.9 x 4.7 x 5.3 cm. The uterus demonstrates unremarkable heterogeneous echogenicity, no evidence of masses is seen. Hyperechoic intrauterine contraceptive device visualized in position. The endometrial stripe measures 0.6 cm in AP diameter which is within normal limits. RIGHT OVARY: Patient is status post right oophorectomy. LEFT OVARY: The left ovary is prominent in size demonstrates a prominent simple cyst that demonstrates internal septations and mild irregularity in its wall, the cyst measures 3.4 x 3.1 x 2.5 cm. Unremarkable vascularity of the left ovary, the left ovary measures 5.7 x 3.8 x 3.7 cm. FREE FLUID: None. US/Pelvic (Non ) IMPRESSION: Prominent complex cyst visualized within the left ovary measuring 2.4 cm. Unremarkable vascularity of the left ovary was no evidence of torsion. Patient is status post right oophorectomy. No evidence of uterine masses. Electronically Signed: Ramos Dodge MD at 16:40 EST Tel , Service support ,
--- NOTE | 2021-06-21 12:03 | US_ITS ---
INDICATION: OVARIAN CYST -- LT SIDE EXAMINATION: Ultrasound US Transvaginal Non-OB TECHNIQUE: Transvaginal (for optimal evaluation of the adnexa) pelvic ultrasound was performed. Grayscale, spectral waveform, and color flow Doppler evaluation of the adnexa. COMPARISON: None. FINDINGS: UTERUS: The uterus measures 8.9 x 4.7 x 5.3 cm. The uterus demonstrates unremarkable heterogeneous echogenicity, no evidence of masses is seen. Hyperechoic intrauterine contraceptive device visualized in position. The endometrial stripe measures 0.6 cm in AP diameter which is within normal limits. RIGHT OVARY: Patient is status post right oophorectomy. LEFT OVARY: The left ovary is prominent in size demonstrates a prominent simple cyst that demonstrates internal septations and mild irregularity in its wall, the cyst measures 3.4 x 3.1 x 2.5 cm. Unremarkable vascularity of the left ovary, the left ovary measures 5.7 x 3.8 x 3.7 cm. FREE FLUID: None. US/Transvaginal Non- IMPRESSION: Prominent complex cyst visualized within the left ovary measuring 2.4 cm. Unremarkable vascularity of the left ovary was no evidence of torsion. Patient is status post right oophorectomy. No evidence of uterine masses. Electronically Signed: Ramos Dodge MD at 16:40 EST Tel , Service support ,
== END ==
PROVIDERS: PCP Family Medicine
DX: N83.202 Unspecified ovarian cyst, left side (principal)
CPT/HCPCS: 76830; 76856; 93976